=== PATIENT | male | born 1955 | race Two or more races ===

== ENCOUNTER 2020-03-31 08:34 | Emergency (ER) | payer MEDICAID, OTHER ==
[~2020-03-31] VITALS: Ht 162.6 cm; Wt 59.0 kg
[2020-03-31] MEDS ORDERED: BUDESONIDE (INHALATION) 0.5 MG/2 ML NEB NEB ONE ×2 (09:00→10:00)
[2020-03-31 11:36] VITALS: BP 149/78
== END 2020-03-31 11:49 | disposition home or self-care (01) ==
LOC: ER 08:34
DX: U07.1 COVID-19 (principal); R06.02 Shortness of breath; F41.9 Anxiety disorder, unspecified
CPT/HCPCS: 71045; 93005; 94640